=== PATIENT | female | born 1965 | race Caucasian/White ===

== ENCOUNTER 2020-04-25 15:01 | Emergency (ER) | payer BC, OTHER ==
[~2020-04-25] VITALS: Ht 170.2 cm; Wt 78.9 kg
[2020-04-25 15:46] LABS: CLARITY,URINE CLEAR (Clear); COLOR,URINE STRAW (Yellow); GLUCOSE, URINE >=1000 mg/dl (Neg); KETONES,URINE TRACE mg/dl (Neg); LEUKOCYTE ESTERASE ,URINE NEGATIVE (Neg); NITRITES, URINE NEGATIVE (Neg); OCCULT BLOOD,URINE NEGATIVE (Neg); PROTEIN,URINE NEGATIVE (Neg); UROBILINOGEN,URINE 0.2 E.U/dL (0.2-1.0)
[2020-04-25 15:48] LABS: UA COLLECTION TYPE CLN CATCH MIDSTREAM
[2020-04-25 15:52] LABS: BACTERIA,URINE FEW /HPF (Neg); HYALINE CASTS 0-3 /LPF (NEGATIVE); RBC,URINE 0-2 /HPF (0-2); SQUAMOUS EPITHELIAL CELL,UR FEW /LPF (FEW); WBC,URINE 0-4 /HPF (0-4)
[2020-04-25 15:53] LABS: BASOPHILS % (AUTO) 1.2 % (0-1); EOSINOPHILS # (AUTO) 0.1 X10'3 (0-0.9); EOSINOPHILS % (AUTO) 3.3 % (0-6); HEMATOCRIT 41.9 % (35.0-45.0); HEMOGLOBIN 14.2 g/dl (12.0-16.0); LYMPHOCYTES # (AUTO) 0.9 X10'3 (1.1-4.8); LYMPHOCYTES % (AUTO) 22.3 % (21-51); MEAN CORPUSCULAR HEMOGLOBIN 29.6 PG (27.0-31.0); MEAN CORPUSCULAR VOLUME 87.1 FL (78-98); MEAN PLATELET VOLUME 6.5 FL (7.4-10.4); MONOCYTES # (AUTO) 0.4 X10'3 (0-0.9); MONOCYTES % (AUTO) 9.8 % (2-12); NEUTROPHILS # (AUTO) 2.5 X10'3 (1.8-7.7); NEUTROPHILS % (AUTO) 63.4 % (42-75); PLATELET COUNT 376 X10'3 (140-440); RED BLOOD COUNT 4.81 X10'6 (4.20-5.60); RED CELL DISTRIBUTION WIDTH 12.7 % (11.5-14.5); WHITE BLOOD COUNT 3.9 X10'3 (4.5-11.0)
[2020-04-25 16:00] LABS: ALANINE AMINOTRANSFERASE 22 U/L (12-78); ALBUMIN 3.7 G/DL (3.4-5.0); ALBUMIN/GLOBULIN RATIO 1.1 (1.1-1.5); ALKALINE PHOSPHATASE 107 IU/L (46-116); ANION GAP 12 (8-16); ASPARTATE AMINO TRANSFERASE 13 U/L (10-37); BILIRUBIN,TOTAL 0.3 MG/DL (0.1-1.0); BLOOD UREA NITROGEN 15 MG/DL (7-18); CALCIUM 9.3 MG/DL (8.5-10.1); CHLORIDE 104 MMOL/L (99-107); CREATININE 0.94 MG/DL (0.40-0.90); GLUCOSE 137 MG/DL (70-104); LIPASE 471 U/L (73-393); POTASSIUM 3.2 MMOL/L (3.5-5.1); SODIUM 144 MMOL/L (135-145); TOTAL CARBON DIOXIDE 27.9 MMOL/L (24-32); TOTAL PROTEIN 7.2 G/DL (6.4-8.2); eGFR 61 ML/MIN
[2020-04-25] MEDS ORDERED: potassium Cl 20 mEq SR tablet PO ONE (16:35)
[2020-04-25] MEDS ORDERED: normal saline 1000ml 1,000 ML IV ONE (16:35)
[2020-04-25] MEDS ORDERED: morphine 4 MG/ML inj SYRINge IV ONE (17:55)
[2020-04-25] MEDS ORDERED: ondansetron/PF 4mg/2ml inj IV ONE (17:55)
[2020-04-25] MEDS ORDERED: HYDR-3965 PO (18:03)
[2020-04-25] MEDS ORDERED: ONDA4TAB6 PO (18:03)
[2020-04-25 18:39] VITALS: BP 171/105
== END 2020-04-25 18:42 | disposition home or self-care (01) ==
LOC: ER 15:02
DX: K85.90 Acute pancreatitis without necrosis or infection, unspecified (principal); Z79.899 Other long term (current) drug therapy
CPT/HCPCS: 36415; 74176; 80053; 81001; 83690; 85025; 96361; 96374; 96375; 99284; J2270; J2405; J7030

== ENCOUNTER 2020-05-04 06:37 | Day surgery (SDC) | payer BC ==
[~2020-05-04] VITALS: Ht 170.2 cm; Wt 76.2 kg
[~2020-05-04 06:37] MED LIST: ONDA4TAB6 PO
[2020-05-04] MEDS ORDERED: normal saline 1000ml 1,000 ML IV SCH (07:10)
[2020-05-04 07:45] VITALS: BP 130/90
[2020-05-04] MEDS ORDERED: SULF1TAB49 PO (08:17)
[2020-05-04] MEDS ORDERED: EMPA10TA PO (08:17)
[2020-05-04] MEDS ORDERED: SOUR1000 PO (08:17)
[2020-05-04] MEDS ORDERED: CHOL200012 PO (08:17)
[2020-05-04] MEDS ORDERED: BUPR-286 PO (08:17)
[2020-05-04] MEDS ORDERED: GLIM4TAB7 PO (08:17)
[2020-05-04] MEDS ORDERED: LISI-604 PO (08:17)
[2020-05-04] MEDS ORDERED: INSU3INS2 SQ (08:17)
[2020-05-04 09:11] VITALS: BP 144/108
[2020-05-04 09:15] VITALS: BP 145/89
[2020-05-04 09:30] VITALS: BP 146/91
[2020-05-04 09:45] VITALS: BP 149/94
[2020-05-04 10:00] VITALS: BP 141/77
== END 2020-05-04 10:20 | disposition home or self-care (01) ==
LOC: SSTAY O 06:37
PROVIDERS: ATTEND Radiology Diagnostic Radiology
DX: R22.42 Localized swelling, mass and lump, left lower limb (principal); Z85.3 Personal history of malignant neoplasm of breast; E11.9 Type 2 diabetes mellitus without complications; Z79.899 Other long term (current) drug therapy; Z90.13 Acquired absence of bilateral breasts and nipples
CPT/HCPCS: 20206; 49180; 76942; 82948